=== PATIENT | female | born 1995 | race Hispanic/Latino ===

== ENCOUNTER 2019-09-16 12:26 | Emergency (ER) | payer BC ==
--- NOTE | 2019-09-16 13:46 | Event Note ---
ED Screening Note Date of service: 09/16/19 Time: 13:44 ED Screening Note: 23 y/o female comes in for a day an a half of abd pain. LMP 2.5 months ago. G5,P4. Concern for UTI. This initial assessment/diagnostic orders/clinical plan/treatment(s) is/are subject to change based on patients health status, clinical progression and re- assessment by fellow clinical providers in the ED. Further treatment and workup at subsequent clinical providers discretion. Patient/guardian urged not to elope from the ED as their condition may be serious if not clinically assessed and managed. Initial orders include:
[2019-09-16 13:51] VITALS: BP 118/67
[2019-09-16 14:29] LABS: Bacteria,Urine 1+ /HPF (Negative); Bilirubin,Urine NEG (Negative); Blood,Urine NEG (Negative); Color,Urine Yellow (Yellow); Mucus,Urine 2+ /HPF; Protein,Urine <15 mg/dL mg/dL (Negative); Urobilinogen,Urine < 2.0 mg/dL (<2.0)
--- NOTE | 2019-09-16 16:05 | Emergency Department Report ---
ED Female HPI - General Chief complaint: Abdominal Pain Stated complaint: ABD PAIN Time Seen by Provider: 09/16/19 15:53 Source: patient Mode of arrival: Ambulatory Limitations: No Limitations - History of Present Illness Initial comments: 23 y/o female comes in for a day an a half of abd pain. LMP 2.5 months ago. G5,P4. Concern for UTI. Complaint: dysuria, pelvic pain - Related Data Allergies Allergy/AdvReac Type Severity Reaction Status Date / Time No Known Allergies Allergy Unverified 09/16/19 12:45 ED Review of Systems ROS: Stated complaint: ABD PAIN Other details as noted in HPI ED Past Medical Hx - Social History Smoking Status: Never Smoker Substance Use Type: None ED Physical Exam - General Limitations: No Limitations ED Course Vital Signs 09/16/19 13:44 Temperature 98.9 F Pulse Rate 94 H Respiratory 18 Rate Blood Pressure 118/67 O2 Sat by Pulse 98 Oximetry Critical care attestation.: If time is entered above; I have spent that time in minutes in the direct care of this critically ill patient, excluding procedure time. ED Disposition Condition: Stable Instructions: Abdominal Pain (ED) Referrals: PRIMARY CARE, [Primary Care Provider] - 3-5 Days
[2019-09-16] MEDS ORDERED: NITROFURANTOIN MONOHYD/M-CRYST 100 MG CAP PO ONE (17:27)
[2019-09-16] MEDS ORDERED: ACETAMINOPHEN 325 MG TAB PO ONE (17:27)
--- NOTE | 2019-09-16 17:30 | Emergency Department Report ---
ED Female HPI - General Chief complaint: Abdominal Pain Stated complaint: ABD PAIN Time Seen by Provider: 09/16/19 15:53 Source: patient Mode of arrival: Ambulatory Limitations: No Limitations - History of Present Illness Initial comments: 23-year-old female G5, P4 with LMP July 17, 2019 presents to the hospital complaining of suprapubic pelvic pain x1.5 days. Pain is stabbing and intermittent and worse with palpation. Positive dysuria at the end of urinary stream and increased urinary frequency today. No fever but generalized body aches and chills. Positive nausea without vomiting. History of delivery x4 and previous tubal ligation treated medically followed by questionable D&C. - Related Data Previous Rx's Medication Instructions Recorded Last Taken Type Nitrofurantoin [place]/M-Cryst 100 mg PO Q12HR #14 capsule 09/16/19 Unknown Rx [Macrobid CAP] Allergies Allergy/AdvReac Type Severity Reaction Status Date / Time No Known Allergies Allergy Unverified 09/16/19 12:45 ED Review of Systems ROS: Stated complaint: ABD PAIN Other details as noted in HPI ED Past Medical Hx - Past Medical History Additional medical history: Ectopic - Surgical History Additional Surgical History: x4 - Social History Smoking Status: Never Smoker Substance Use Type: None - Medications Home Medications: Home Medications Medication Instructions Recorded Confirmed Last Taken Type Nitrofurantoin [place]/M-Cryst 100 mg PO Q12HR #14 capsule 09/16/19 Unknown Rx [Macrobid CAP] ED Physical Exam - General Limitations: No Limitations - Other Other exam information: General: No acute distress Head: Atraumatic Eyes: normal appearance ENT: Moist mucous membranes Neck: Normal appearance, no midline tenderness Chest: Clear to auscultation bilaterally CV: Regular rate and rhythm Abdomen: Soft, normal bowel sounds, suprapubic tenderness without rebound or guarding, nondistended, no rebound or guarding Back: Normal inspection Extremity: Normal inspection, full range of motion Neuro: Alert O x 3, no facial asymmetry, speech clear, no gross motor sensory deficit Psych: Appropriate behavior Skin: No rash ED Course Vital Signs 09/16/19 13:44 Temperature 98.9 F Pulse Rate 94 H Respiratory 18 Rate Blood Pressure 118/67 O2 Sat by Pulse 98 Oximetry - Reevaluation(s) Reevaluation #1: 09/16/19 20:26 I called the number provided by the patient and left a voicemail stating that ultrasound confirmed 2 gestational sacs 5 weeks and 5 days. ED Medical Decision Making - Radiology Data Radiology results: report reviewed ULTRASOUND OBSTETRIC INDICATION / CLINICAL INFORMATION: pelvic pain, uti, + hcg. TECHNIQUE: Transabdominal and Transvaginal. COMPARISON: None available. FINDINGS: 2 gestational sacs are visualized, suggestive of twin gestation. Gestational sac 1: Closer to the fundus. Gestational sac size measures 0.90 cm, which corresponds to 5 weeks, 5 days. No pole seen at this time. Gestational sac 2: More inferior to gestational sac 1. Gestational sac size measures 0.4 cm, which corresponds to 5 weeks, 5 days gestational age. No pole seen at this time. ADNEXA: No significant abnormality. FREE FLUID: None. ADDITIONAL FINDINGS: None. IMPRESSION: 2 gestational sacs suggesting twin as detailed above. No pole or heart rate identified at this time (likely too early to identify). - Medical Decision Making Patient has a UTI and positive test. Preliminary ultrasound is posi tive for twin gestational sacs without signs of ectopic. Estimated due date May 13 with current gestational age of 5 weeks. Patient has a 9 PM flight to catch and is unable to wait for the official report prior to discharge. Patient cell phone number is [phone]. I informed her that she was provided only the preliminary results that need to be verified by the radiologist. If there is any acute emergent abnormalities that need emergent care I will call her since she has to leave the department at this time. She was provided initial dose of Macrobid prior to discharge. Critical Care Time: No Critical care attestation.: If time is entered above; I have spent that time in minutes in the direct care of this critically ill patient, excluding procedure time. ED Disposition Clinical Impression: UTI (urinary tract infection), Twin gestation in first trimester Disposition: DC-01 TO HOME OR SELFCARE Is pt being admited?: No Does the pt Need Aspirin: No Condition: Stable Instructions: Urinary Tract Infection in Women (ED), (ED) Additional Instructions: Take the medication as prescribed. Follow-up with your doctor or doctor/clinic provided. Return if symptoms worsen as indicated by your discharge instructions. Take [id number] vitamins You are leaving prior to the official results of your ultrasound. The preliminary result shows a twin with 2 gestational sacs in the uterus (approximately 5 weeks). At this time there is not a pole or heartbeat and it does not appear to be a in your tubes. Prescriptions: Nitrofurantoin [place]/M-Cryst [Macrobid CAP] 100 mg PO Q12HR #14 capsule Referrals: [facility] [Provider Group] - 3-5 Days Time of Disposition: 19:43
[2019-09-16] MEDS ORDERED: ACETAMINOPHEN 325 MG TAB ONE (19:34)
[2019-09-16] MEDS ORDERED: ONDANSETRON 4 MG ODT TAB ONE (19:35)
[2019-09-16] MEDS: ONDANSETRON 4 MG ODT TAB PO ONE ×2 (19:36→19:39)
[2019-09-16] MEDS ORDERED: NITROFURANTOIN MONOHYD/M-CRYST 100 MG CAP ONE (19:36)
--- NOTE | 2019-09-16 19:57 | Ultrasound Report ---
ULTRASOUND OBSTETRIC INDICATION / CLINICAL INFORMATION: pelvic pain, uti, + hcg. TECHNIQUE: Transabdominal and Transvaginal. COMPARISON: None available. FINDINGS: 2 gestational sacs are visualized, suggestive of twin gestation. Gestational sac 1: Closer to the fundus. Gestational sac size measures 0.90 cm, which corresponds to 5 weeks, 5 days. No pole seen at this time. Gestational sac 2: More inferior to gestational sac 1. Gestational sac size measures 0.4 cm, which co rresponds to 5 weeks, 5 days gestational age. No pole seen at this time. ADNEXA: No significant abnormality. FREE FLUID: None. ADDITIONAL FINDINGS: None. IMPRESSION: 2 gestational sacs suggesting twin as detailed above. No pole or heart rate identifie d at this time (likely too early to identify). Signer Name: Gio Paz MD Signed: 09/16/2019 7:52 PM Workstation Name: [id number]
== END 2019-09-16 20:22 | disposition home or self-care (01) ==
LOC: ED 12:26
DX: O23.41 Unspecified infection of urinary tract in pregnancy, first trimester (principal); O30.001 Twin pregnancy, unspecified number of placenta and unspecified number of amniotic sacs, first trimester; Z3A.01 Less than 8 weeks gestation of pregnancy; Z98.890 Other specified postprocedural states; Z79.899 Other long term (current) drug therapy
CPT/HCPCS: 36415; 76801; 76802; 76817; 81001; 84702; 87076; 87086; 87186; Q0162